=== PATIENT | male | born 1985 | race Caucasian/White ===

== ENCOUNTER 2020-07-24 09:26 | Outpatient (REF) | payer MEDICAID, SELFPAY | END 2020-07-24 09:27 | disposition home or self-care (01) | LOC: HO.LAB 09:26 | PROVIDERS: Visit Provider Internal Medicine | DX: Z20.828 Contact with and (suspected) exposure to other viral communicable diseases (principal) | CPT/HCPCS: C9803; U0003 ==

== ENCOUNTER 2020-08-12 08:06 | Outpatient (REF) | payer MEDICAID, SELFPAY | END 2020-08-12 08:07 | disposition home or self-care (01) | LOC: HO.LAB 08:06 | PROVIDERS: PCP Internal Medicine; Visit Provider Internal Medicine | DX: Z20.828 Contact with and (suspected) exposure to other viral communicable diseases (principal) | CPT/HCPCS: C9803; U0003 ==

== ENCOUNTER 2020-11-20 09:53 | Outpatient (REF) | payer MEDICAID, SELFPAY ==
[2020-11-20 12:13] LABS: SARS COV2 PCR INHOUSE NEGATIVE (Negative)
== END 2020-11-20 09:54 | disposition home or self-care (01) ==
LOC: HO.LAB 09:53
PROVIDERS: Visit Provider Internal Medicine
DX: Z20.822 Contact with and (suspected) exposure to COVID-19 (principal)
CPT/HCPCS: C9803; U0003

== ENCOUNTER 2021-07-29 11:34 | Outpatient (REF) | payer MEDICAID, SELFPAY | END 2021-07-29 11:35 | disposition home or self-care (01) | LOC: HO.LAB 11:34 | PROVIDERS: Visit Provider Internal Medicine | DX: Z20.822 Contact with and (suspected) exposure to COVID-19 (principal) | CPT/HCPCS: C9803; U0003; U0005 ==

== ENCOUNTER 2023-12-22 09:03 | Outpatient (REF) | payer MEDICAID, SELFPAY ==
[2023-12-22 14:47] LABS: Alanine Aminotransferase 42 U/L (0-40); Albumin Level 4.2 g/dL (3.5-5.0); Alkaline Phosphatase 93 U/L (39-117); Anion Gap 14 (12-20); Aspartate Amino Transferase 27 U/L (5-37); Bilirubin Direct 0.2 mg/dL (0.0-0.5); Bilirubin Total 0.5 mg/dL (0.0-1.0); Blood Urea Nitrogen 12 mg/dL (9-16); Calcium 9.2 mg/dL (8.4-10.2); Carbon Dioxide 23 mmol/L (22-29); Chloride 103 mmol/L (96-108); Cholesterol 148 mg/dL (<200); Estimated Glomerular Filt Rate > 60; Glucose Random 223 mg/dL (60-115); HDL Cholesterol 35 mg/dL (>40); LDL Cholesterol Calculated 70 mg/dL (<100); Potassium 3.7 mmol/L (3.3-5.1); Sodium 136 mmol/L (135-145); Total Protein 7.4 g/dL (6.5-8.0); Triglycerides 218 mg/dL (<150)
== END 2023-12-22 09:04 | disposition home or self-care (01) ==
LOC: HO.CHCLDS 09:03
PROVIDERS: Visit Provider Student in an Organized Health Care Education/Training Program
DX: I10 Essential (primary) hypertension (principal)
CPT/HCPCS: 36415; 80048; 80061; 80076

== ENCOUNTER 2024-07-17 12:18 | Outpatient (REF) | payer MEDICAID, SELFPAY ==
[2024-07-17 12:39] LABS: MANUAL DIFF FLAG NO
[2024-07-17 12:44] LABS: Basophils Absolute Auto 0.1 X10*3/uL (0.0-0.2); Basophils Percent Auto 1.1 % (0-2); Eosinophils Absolute Auto 0.5 X10*3/uL (0.0-0.4); Eosinophils Percent Auto 6.6 % (0-4); Hematocrit 45.2 % (42.0-52.0); Hemoglobin 16.1 g/dl (14.0-18.0); Imm Gran Abs Auto 0.03 X10*3/uL (0.00-0.03); Imm Gran Pct Auto 0.4 % (0.0-0.4); Lymphocytes Absolute Auto 2.3 X10*3/uL (1.2-4.9); Mean Corpuscular HGB Conc 35.6 g/dl (31.0-36.0); Mean Corpuscular Hemoglobin 29.7 pg (27.0-33.0); Mean Corpuscular Volume 83.2 fL (80.0-98.0); Mean Platelet Volume 10.8 fL (9.4-12.4); Monocytes Absolute Auto 0.4 X10*3/uL (0.1-1.2); Monocytes Percent Auto 5.8 % (2-11); Neutrophils Absolute Auto 3.8 x10*3/uL (2.0-8.3); Neutrophils Percent Auto 53.1 % (45-73); Platelet Count 237 X10*3/uL (160-400); Red Blood Count 5.43 X10*6/uL (4.60-5.80); Red Cell Distribution Width 12.3 % (11.0-16.0); White Blood Count 7.1 X10*3/uL (4.8-10.8)
[2024-07-17 13:55] LABS: Carbamazepine Tegretol < 2.0 mcg/mL (5.0-12.0)
[2024-07-17 13:56] LABS: Alanine Aminotransferase 59 U/L (0-40); Albumin Level 4.3 g/dL (3.5-5.0); Alkaline Phosphatase 127 U/L (39-117); Anion Gap 14 (12-20); Aspartate Amino Transferase 35 U/L (5-37); Bilirubin Total 0.4 mg/dL (0.0-1.0); Blood Urea Nitrogen 7 mg/dL (9-16); Carbon Dioxide 26 mmol/L (22-29); Chloride 100 mmol/L (96-108); Estimated Glomerular Filt Rate > 60; Glucose Random 377 mg/dL (60-115); Potassium 3.5 mmol/L (3.3-5.1); Sodium 136 mmol/L (135-145); Total Protein 7.3 g/dL (6.5-8.0)
== END 2024-07-17 12:19 | disposition home or self-care (01) ==
LOC: HO.LAB 12:18
PROVIDERS: Visit Provider Psychiatry & Neurology Neurology
DX: G40.909 Epilepsy, unspecified, not intractable, without status epilepticus (principal); G93.40 Encephalopathy, unspecified
CPT/HCPCS: 36415; 80053; 80156; 85025

== ENCOUNTER 2024-10-02 11:31 | Outpatient (REF) | payer MEDICAID, SELFPAY ==
--- OUTSIDE RECORDS SUMMARY | 2024-10-02 13:11 | XMS_ITS | Clinical Summary ---
Author Organization [email or web address] Address [address] [facility] [address] [place] [address] Care Team Providers Care Conduit Cleaner Name Role Phone Aleisha Crouch MD Primary Care Provider [phone] Allergies No known active allergies Medications Diclofenac Sodium (Voltaren) 1 % gel Apply 2 g topically in the morning and 2 g at noon and 2 g in the evening. 03/19/20 21 Active diphenhydrAMINE (Benadryl Allergy) 25 MG tablet Take 1 tablet by mouth. 06/17/20 21 Active LORazepam (Ativan) 0.5 MG tablet Take 1 tablet (0.5 mg) by mouth if needed at bedtime for anxiety. 30 tablet 03/20/20 24 Active ibuprofen 800 MG tabletIndicatio ns:Acute left-sided low back pain without sciatica Take 1 tablet (800 mg) by mouth every 8 (eight) hours if needed for mild pain or moderate pain. Take medicine with food. 60 tablet 1 05/07/20 24 Active Blood Glucose Monitoring Suppl (PaywardStyle Bryan Lite) w/Device kitIndications: New onset type 2 diabetes mellitus (CMS/HCC) Use to test blood sugar 1 times daily 1 kit 07/23/20 24 Active carBAMazepine (TEGretol) 200 MG tablet Take 1 tablet by mouth 2 times daily. 08/14/20 24 Active Blood Pressure kit Check blood pressure daily as directedd 1 kit 09/28/19 25 Active metFORMIN XR (Glucophage-XR) 500 MG 24 hr tabletIndicatio ns:New onset type 2 diabetes mellitus (CMS/HCC) Take 1 tablet (500 mg) by mouth 2 times daily. In the morning and at bedtime 180 tablet 3 10/02/19 25 Active rosuvastatin (Crestor) 10 MG tabletIndicatio ns:New onset type 2 diabetes mellitus (CMS/HCC) Take 1 tablet (10 mg) by mouth at bedtime. 90 tablet 10/02/19 25 Active lisinopril 5 MG tabletIndicatio ns:Primary hypertension Take 1 tablet (5 mg) by mouth in the morning. 90 tablet 10/02/19 25 Active Alcohol Swabs 70 % padsIndications :New onset type 2 diabetes mellitus (CMS/HCC) Use once daily 100 each 10/02/19 25 Active glucose blood (FREESTYLE LITE) test stripIndication s:New onset type 2 diabetes mellitus (CMS/HCC) Test blood sugar once daily 100 each 10/02/19 25 026 Active Lancets miscIndications :New onset type 2 diabetes mellitus (CMS/HCC) Test blood sugar once daily 100 each 10/02/19 25 Active carBAMazepine ER (Carbatrol) 200 MG 12 hr capsule Take 1 capsule by mouth every 12 (twelve) hours. 025 Discontinued(Me d list cleanup (will not trigger notification to Pharmacy)) hydrOXYzine HCl (Atarax) 10 MG tablet 1 tablet in the morning. 02/12/20 22 025 Discontinued(Me d list cleanup (will not trigger notification to Pharmacy)) ibuprofen 800 MG tablet Take 1 tablet by mouth every 8 (eight) hours. 09/05/19 025 Discontinued(Du plicate order (will not trigger notification to Pharmacy)) hydroCHLOROthia zide (HYDRODiuril) 25 MG tablet Take 1 tablet (25 mg) by mouth in the morning. 90 tablet 3 02/26/20 025 Discontinued(Me d list cleanup (will not trigger notification to Pharmacy)) gemfibrozil (Lopid) 600 MG tablet Take 1 tablet (600 mg) by mouth every 12 (twelve) hours. 180 tablet 3 02/26/20 025 Discontinued(Me d list cleanup (will not trigger notification to Pharmacy)) simvastatin (Zocor) 40 MG tabletIndicatio ns:Hypercholest eremia Take 1 tablet (40 mg) by mouth at bedtime. 90 tablet 3 12/22/19 24 025 Discontinued(Al ternate therapy) FREESTYLE LITE test stripIndication s:New onset type 2 diabetes mellitus (CMS/HCC) Use to test blood sugar 1 times daily 100 each 12 07/23/20 24 025 Discontinued(Re order (will not trigger notification to Pharmacy)) Lancets miscIndications :New onset type 2 diabetes mellitus (CMS/HCC) Use to test blood sugar 1 times daily 100 each 07/23/20 24 025 Discontinued(Re order (will not trigger notification to Pharmacy)) Alcohol Swabs 70 % padsIndications :New onset type 2 diabetes mellitus (CMS/HCC) Use to test blood sugar 1 times daily 100 each 07/23/20 24 025 Discontinued(Re order (will not trigger notification to Pharmacy)) lisinopril 5 MG tabletIndicatio ns:Primary hypertension Take 1 tablet (5 mg) by mouth Once per day. 30 tablet 11 07/23/20 24 025 Discontinued(Re order (will not trigger notification to Pharmacy)) Continuous Glucose Refinery Operator (FreeStyle Jocelin 2 Yolyn) device Scan sensor every 8 hours 1 each 07/30/20 24 025 Discontinued(Co st of medication) Continuous Glucose Sensor (FreeStyle Jocelin 2 Sensor) [facility] Apply 1 sensor every 14 days 2 each 3 07/30/20 24 025 Discontinued(Co st of medication) metFORMIN (Glucophage) 500 MG tabletIndicatio ns:New onset type 2 diabetes mellitus (CMS/HCC) Take 1 tablet (500 mg) by mouth with breakfast and with evening meal. 09/28/19 25 025 Discontinued(Al ternate therapy) Active Problems Problem Noted Date Diagnosed Date Primary hypertension 02/25/2023 Developmental delay 11/28/2013 Psychosexual dysfunction 01/13/2012 Encounters Date Type Department Care Team Description 10/02/2024 Travel 10/02/2024 Telephone [facility] [address] [place] [address] Aleisha Crouch MD Appointment Request 09/28/2024 9:30 AM EST Telemedicine [facility] [address] [place] [address] Shi Little, PharmD New onset type 2 diabetes mellitus (CMS/HCC) (Primary Dx) 09/20/2024 Orders Only [facility] [address] [facility] [place] [address] Aleisha Crouch MD Primary hypertension (Primary Dx) 09/18/2024 Telephone [facility] [address] [place] [address] Shi Little PharmD 09/06/2024 9:30 AM EST Nutrition [facility] [address] [place] [address] New onset type 2 diabetes mellitus (CMS/HCC) 09/06/2024 Travel 08/29/2024 Telephone [facility] [address] [place] [address] Cady Sanford RN 08/27/2024 Telephone [facility] [address] [place] [address] Aleisha Crouch MD No Show 08/06/2024 Telephone [facility] [address] [place] [address] Lynn Vogel, packing and final assembly supervisor 07/30/2024 10:00 AM EST Office Visit [facility] [address] [place] [address] Aleisha Crouch MD New onset type 2 diabetes mellitus (CMS/HCC) (Primary Dx); Primary hypertension 07/30/2024 Telephone [facility] [address] [place] [address] Aleisha Crouch MD CGM PA 07/30/2024 Travel 07/23/2024 1:00 PM EST Office Visit [facility] [address] [place] [address] Claudia Carson MD New onset type 2 diabetes mellitus (CMS/HCC) (Primary Dx); Primary hypertension 07/23/2024 Travel 07/18/2024 Telephone [facility] [address] [place] [address] Aleisha Crouch MD Walk-In 07/16/2024 Patient Outreach [facility] [address] [place] [address] Aleisha Crouch MD 07/16/2024 Patient Outreach [facility] [address] [place] [address] Aleisha Crouch MD Pre-visit Planning (SDOH negative, Tobacco screening negative.) from Last 3 Months Immunizations Name Administration Dates Next Due Influenza Injectable Quadriv alant Preservative Free IIV4 MDCK 05/24/2023,06/07/2022 Influenza injectable quadriv alent IIV4 with preservative 05/19/2018,05/27/2015 Influenza injectable quadriv alent preservative free 06/07/2021,06/07/2019,05/30/2016 Influenza, High Dose Seasona l, Preservative Free 05/30/2017 Influenza, IIV3, injectable 06/01/2013 Influenza, Injectable, MDCK, preservative free 06/05/2024 Influenza, seasonal, injecta ble, preservative free 05/30/2017,05/30/2016 Moderna Covid-19 Vaccine 12+ 08/24/2021,01/13/20 21,12/15/2020 TD (adult), 2 Lf tetanus tox oid, preservative free, adsorbed 04/04/2017 Td (adult), 5 Lf tetanus tox oid, preservative free, adsorbed 04/04/2017 Tdap 12/21/2023 Family History Medical History Relation Name Comments Diabetes type II Maternal Grandmother Diabetes type II Mother's Sister Relation Name Status Comments Maternal Grandmother Mother's Sister Social History Tobacco Use Types Packs/Day Years Used Date Smoking Tobacco: Never Smokeless Tobacco: Never Tobacco Cessation:Counseling Given: Not Answered Alcohol Use Standard Drinks/Week Comments Never 0 (1 standard drink = 0.6 oz pur e alcohol) Depression Answer Date Recorded Patient Health Questionnaire-9 Score 2 12/21/2023 Patient Health Questionnaire-9 Score 2 12/21/2023 Last PHQ-9: Questionnaire Data Not on file 0 12/21/2023 Housing Stability Answer Date Recorded What is your housing situation today? I have melissa mendoza 07/16/[address] you li ve. Do you have problems with any of the following? None of the above 07/16/2024 Food Insecurity Answer Date Recorded Within the past 12 months, y ou worried that your food would run out before you got money to buy more: Never True 07/16/2024 Within the past 12 months,th e food you bought just didn't last and you didn't have enough money to get more: Never True Transportation Answer Date Recorded In the past 12 months, has l ack of transportation kept you from medical appts, meetings, work or from getting things needed for daily living? No 07/16/2024 Utilities Answer Date Recorded In the past 12 months, has t he electric, gas, oil or water company threatened to shut off services in your home? No 07/16/2024 Depression Answer Date Recorded Patient Health Questionnaire-2 Score 2 12/21/2023 Internet Access Answer Date Recorded Internet Access Q1 Yes 07/16/2024 Internet Access Q2 Not on file 07/16/2024 Sex and Gender Information Value Date Recorded Sex Assigned at Male 06/21/2022 10:18 AM EDT Legal Sex Male 10:18 AM EDT Gender Identity Male 06/21/2022 10:18 AM EDT Sexual Orientation Straight 06/21/2022 10 :18 AM EDT Last Filed Vital Signs Vital Sign Reading Time Taken Comments Blood Pressure 124/76 10/02/2024 11:24 AM EST Pulse 99 10/02/2024 11:24 AM EST Temperature 36.7 ??C (98 ??F) 07/30/2024 10:01 AM EST Respiratory Rate 18 07/30/2024 10:01 AM EST Oxygen Saturation 99% 07/30/2024 10:01 AM EST Inhaled Oxygen Concentration - - Weight 64.9 kg (143 lb) 09/06/2024 2:34 PM EST Height 147.3 cm (4' 10 ) 09/06/2024 2:34 PM EST Body Mass Index 29.89 09/06/2024 2:34 PM EST Plan of Treatment Upcoming Encounters Date Type Department Care Team (Late st Contact Info) Description 10/31/2024 10:00 AM EDT Medication Management [facility] [address] [place] [address] Shi Little, PharmD [address] [place] [address] Health Maintenance Due Date Last Done Comments HIV Screening 1983 Diabetes: Foot Exam 1993 Eye Exam 1993 Alcohol/Substance Use Screening 1995 Family Planning (PISQ) 1998 Hepatitis C Screening 2001 Diabetes: Urine Protein Screening 2002 Hepatitis B Vaccines (1 of 3 - 19+ 3-dose series) 2002 Pneumococcal Vaccine: Pediatrics (0 to 5 Years) and At-Risk Patients (6 to 49) Years) (1 of 2 - PCV) 2002 Dental Prophylaxis 11/11/2015 05/12/2015, 0 10/10/2014, 01/17/2014 Dental Oral Exam 12/27/2015 06/27/2015, 02/2015, 01/11/2014 Dental X-Ray: Full Mouth 06/07/2016 06/06/2013 Dental X-Ray: Bitewings 06/28/2016 06/27/2015, 01/11 COVID-19 Vaccine ( season) 2024 08/24/2021, 01/12/2021, 12/15/2020 Diabetes: Hemoglobin A1C 10/21/2024 07/23/2024, 03/22 Depression Screening 12/20/2024 12/21/2023, 12/21/19 Lipid Panel 12/21/2024 12/22/2023, 03/22, 09/23/2021 SDOH Screening 07/16/2025 07/16/2024 Tobacco Screening 07/30/2025 07/30/2024 Zoster Vaccines (1 of 2) 2033 DTaP/Tdap/Td Vaccines (2 - Td or Tdap) 12/20/2033 12/21/2023, 04/04/2017, 04/04/2017 RSV Patients and Patients Aged 60 years or older (1 - 1-dose 75+ series) 2058 Influenza Vaccine Completed 06/05/2024, , 06/07/2022, Additional history exists HIB Vaccines Aged Out No longer eligi ble based on patient's age to complete this topic HPV Vaccines Aged Out No longer eligi ble based on patient's age to complete this topic Hepatitis A Vaccines Aged Out No long er eligible based on patient's age to complete this topic IPV Vaccines Aged Out No longer eligi ble based on patient's age to complete this topic Meningococcal Vaccine Aged Out No nerissa sherrie eligible based on patient's age to complete this topic RSV under 20 months Aged Out No longe r eligible based on patient's age to complete this topic Rotavirus Vaccines Aged Out No longer eligible based on patient's age to complete this topic Procedures Procedure Name Priority Date/Time Associated Diagnosis Comments POCT GLUCOSE Routine 07/30/2024 10:04 AM EST New onset type 2 diabetes mellitus (CMS/HCC) POCT GLYCATED HEMOGLOBIN, TOTAL Routine 07/23/2024 1:40 PM EST New onset type 2 diabetes mellitus (CMS/HCC) POCT GLUCOSE Routine 07/23/2024 1:40 PM EST New onset type 2 diabetes mellitus (CMS/HCC) LIPID PANEL, STANDARD Routine 12/22/2023 9:05 AM EDT Primary hypertension BITEWINGS - 4 RADIOGRAPHIC IMAGES Routine 06/27/2015 12:00 AM EST PERIODIC ORAL EVALUATION - ESTABLISHED PATIENT Routine 06/27/2015 12:00 AM EST PROPHYLAXIS - ADULT Routine 05/12/2015 1 2:00 AM EDT PANORAMIC RADIOGRAPHIC IMAGE Routine 06/06/2013 12:00 AM EDT from Last 3 Months or Most Recently Relevant to Health Maintenance Results * (ABNORMAL) POCT Glucose (07/30/2024 10:04 AM EST) Only the most recent of2 resultswithin the time period is included. Glucose Blood, POC 335(A) 60 - 200 mg/dL QC Media Lot # [id number] Lot# Expiration Date Blood Capillary blood specimen / Unknown 07/30/2024 10:04 AM EST Aleisha Crouch MD POINT OF CARE TEST ENTER/EDIT OR DERABLES Final Result * (ABNORMAL) POCT A1C (07/23/2024 1:40 PM EST) Hemoglobin A1C 11.2(A) 4.0 - 6.0 % QC Media Lot # Comment:[id number] Lot# Expiration Date Comment:03/22/2026 Blood 07/23/2024 1:40 PM EST Claudia Carson MD POINT OF CARE TEST ENTER/ED IT ORDERABLES Final Result * (ABNORMAL) Lipid Panel, Standard (12/22/2023 9:05 AM EDT) Triglycerides 218(H) <150 mg/dL [facility] Comment:Desirable Triglyceri de: less than 150 mg/dLBorderline High Triglyceride 150-199 mg/dLHigh Triglyceride: 200-499 mg/dLVery High Triglyceride: greater than or equal to 5OO mg/dL Cholesterol 148 <200 mg/dL [facility] Comment:Desirable Cholestero l: less than 200 mg/dLBorderline High Cholesterol: 200-239 mg/dLHigh Cholesterol: greater than 239 mg/dL LDL Cholesterol Calculated 70 <100 mg/dL [facility] Comment:Desirable LDL: less than 100 mg/dLNear Optimal/Above Optimal LDL: 110- 129 mg/dLBorderline High LDL: 130-159 mg/dLHigh LDL: 160-189 mg/dLVery High LDL: greater than or equal to 190 mg/dL HDL Cholesterol 35(L) >40 mg/dL [facility] Comment:Desirable HDL: great er than 40 mg/dL Note: This HDL assay may give artificially low results in patients with liver disease. Blood Venous blood specimen / Unknown 12/22/2023 9:05 AM EDT 12/22/2023 2:02 PM EDT Aleisha Crouch MD LAB BLOOD ORDERABLES Final Resul t [facility] [address] [place] [phone] from Last 3 Months or Most Recently Relevant to Health Maintenance Insurance [place] [facility] MEDICAID STAND ADULT Care Teams Conduit Cleaner Relationship Specialty Start Date End Date Aleisha Crouch MD [address] [place] [address] [place] [address] PCP - General Family Medicine 09/21/13
--- OUTSIDE RECORDS SUMMARY | 2024-10-02 13:11 | XMS_ITS | Encounter Summary ---
Author Organization [employer] Address [address] [place] [address] Care Team Providers Care Feather Separator Name Role Phone Aleisha Crouch MD Primary Care Provider [phone] Reason for Visit * Reason Onset Date Comments Appointment Request 10/02/2024 Encounter Details Date Type Department Care Team ([facility] Contact Info) Description 10/02/2024 Telephone [facility] [address] [place] [address] Aleisha Crouch MD [address] [place], [place] [id number] Appointment Request Social History Tobacco Use Types Packs/Day Years Used Date Smoking Tobacco: Never Smokeless Tobacco: Never Alcohol Use Standard Drinks/Week Comments Never 0 [...] Orientation Straight 06/21/2022 10 :18 AM EDT documented as of this encounter Miscellaneous Notes * Telephone Encounter - Nelson Lawrence - 10/02/2024 10:41 AM EST Tc from pt stating that they could not make it to their appt (10/02/2024 at 10am) due to vehicle broken down. Pt requested for a call back to r/s today appt at [phone]. documented in this encounter Plan of Treatment Upcoming Encounters Date Type Department Care Team (Late st Contact Info) Description 10/31/2024 10:00 AM EDT Medication Management [facility] [address] [place] [address] Shi Little PharmD [address] [place] [address] documented as of this encounter Visit Diagnoses Not on filedocumented in this encounter Additional Health Concerns Assessment Noted Time PHQ-9 Depression Total Score: 2 12/21/19 24 9:40 AM EDT documented as of this encounter Care Teams Feather Separator Relationship Specialty Start Date End Date Aleisha Crouch MD [address] [place] [address] PCP - General Family Medicine 09/21/13 documented as of this encounter
--- OUTSIDE RECORDS SUMMARY | 2024-10-02 13:11 | XMS_ITS | Encounter Summary ---
Author Organization [employer] Address [address] [facility] [address] [facility] [place] [address] Care Team Providers Care Intern Retail Name Role Phone Aleisha Crouch MD Primary Care Provider [phone] Encounter Details Date Type Department Care Team (Latest Contact Info) Description 10/02/2024 Travel Social History Tobacco Use Types Packs/Day Years [...] AM EDT documented as of this encounter Plan of Treatment Upcoming Encounters Date Type Department Care Team (Late st Contact Info) Description 10/31/2024 10:00 AM EDT Medication Management [facility] [address] [place] [address] Shi Little, PharmD [address] [place] [address] documented as of this encounter Visit Diagnoses Not on filedocumented in this encounter Additional Health Concerns Assessment Noted Time PHQ-9 Depression Total Score: 2 12/21/19 24 9:40 AM EDT documented as of this encounter Care Teams Intern Retail Relationship Specialty Start Date End Date Aleisha Crouch MD [address] [place] [address] PCP - General Family Medicine 09/21/13 documented as of this encounter
--- OUTSIDE RECORDS SUMMARY | 2024-10-02 13:11 | XMS_ITS | Encounter Summary ---
Author Organization [employer] Address [address] [place] [address] Care Team Providers Care Director Educational Radio Name Role Phone Aleisha Crouch MD Primary Care Provider [phone] Reason for Visit * Reason Onset Date Comments Walk-In 07/18/2024 Encounter Details Date Type Department Care Team ([facility] Contact Info) Description 07/18/2024 Telephone [facility] [address] [place], [place] [phone] Aleisha Crouch MD [address] [place] [address] Walk-In Social History Tobacco Use Types Packs/Day Years [...] encounter Miscellaneous Notes * Telephone Encounter - Cady Sanford RN - 07/24/2024 4:17 PM EST Pt NCNS to WARRANTY COORDINATOR [place] today. TC to pt, pt stated he did not realize today was his appt. Appt r/s to 08/29/24 @ 9:30am. * Telephone Encounter - Berenice Joshi - 07/18/2024 10:40 AM EST Pt just came from the neurologist appt and they stated for pt to come see pcp as sugar level is 377blood work drawn at [facility] 07/17/24, pt states only symptom is more thirstier than usually documented in this encounter Plan of Treatment Upcoming Encounters Date Type Department Care Team (Late st Contact Info) Description 10/31/2024 10:00 AM EDT Medication Management [facility] & PEDS [address] [place], [place] [phone] Shi Little, PharmD [address] [place] [address] documented as of this encounter Visit Diagnoses Not on filedocumented in this encounter Additional Health Concerns Assessment Noted Time PHQ-9 Depression Total Score: 2 12/21/19 24 9:40 AM EDT documented as of this encounter Care Teams Director Educational Radio Relationship Specialty Start Date End Date Aleisha Crouch MD [address] [place] [address] PCP - General Family Medicine 09/21/13 documented as of this encounter
--- OUTSIDE RECORDS SUMMARY | 2024-10-02 13:11 | XMS_ITS | Encounter Summary ---
Author Organization [employer] Address [address] [facility] [address]t [place] [address] Care Team Providers Care Spar Finisher Name Role Phone Aleisha Crouch MD Primary Care Provider Reason for Visit * Consultation (STAT) - Authorized Specialty Diagnoses / Procedures Referred By Contluis m t Referred To Contact Pharmacy Diagnoses Primary hypertension Aleisha Crouch MD [address] [place] [address] Phone: tel: fax: Referral ID Status Reason Start Date Expiration Date Visits Requested Visits Authorized [id number] Authorized Consult and Treat 09/20/2024 09/20/2025 6 6 Encounter Details Date Type Department Care Team ([facility] Contact Info) Description 09/28/2024 9:30 AM EST Telemedicine [facility] CHC MED & PEDS [address] [place] [address] Shi Little, PharmD [address] [place] [address] New onset type 2 diabetes mellitus (CMS/HCC) (Primary Dx) Social History Tobacco Use Types Packs/Day Years [...] AM EDT documented as of this encounter Progress Notes * Shi Little PharmD - 09/28/2024 9:30 AM EST Pharmacy Consult Visit Type: CDTM Pharmacist: Shi Little PharmD Umang Ferris is a 39 y.o. year old patient here for new patient visit completed over the phone. Subjective History: General / Intake (updated 09/28/24) Allergies: has No Known Allergies. Read/Write: can't read well, Korean Recent Hospitalizations: No Social History as reported by patient: Tobacco: Denies Alcohol: Denies Caffeine: Current, soda sometimes Illicit drugs: Denies Diet: Eats all types of food [employer]; sometimes skips breakfast Only eats lunch if skipped breakfast Rice, beans, corn, mashed potatoes, chicken wings for dinner Sometimes popcorn for snack Exercise: denies regular exercise, reports sometimes jumping jacks, push-ups, etc. Adherence / patient self-management Has assistance from DAIRY FEED MIXING OPERATOR with managing medications, uses pill box Admits to often missing doses or forgets if they were taken or not Refill history demonstrates non-adherence to carbamazepine (last refilled 08/14/24 x 30 days) OTC medication, vitamin, supplement use: denies For [facility] pharmacist: Ibuprofen prn Lorazepam prn Carbamazepine AM-HS Metformin AM-HS Simvastatin HS Lisinopril AM Type 2 Diabetes New onset, PCP visit 07/30/24 Continue metformin -- fell off med list; dose was going to be increased by covering provider but then new rx never sent 500mg vs 1000mg? -- patient reports taking (2) 500mg tabs together Complains of significant diarrhea Would benefit from CGM -- however pt has [facility], denied Pertinent negatives include polyuria, polydipsia, blurred vision SMBG: Freestyle Lite. Patient reports the following: denies experiencing hypoglycemia (<70mg/dL) This morninmg/dl, yesterday morninmg/dl Highest 223mg/dl, lowest 105mg/dl Hypertension No recent changes to medications Patient requests new BP monitor Pertinent negatives include chest pain, headache, blurry vision, dizziness ASCVD risk The 10-year ASCVD risk score (Brett DIAZ, et al., 2019) is: 3% Values used to calculate the score: Age: 39 years Sex: Male Is Non- : No Diabetic: Yes Tobacco smoker: No Systolic Blood Pressure: 138 mmHg Is BP treated: Yes HDL Cholesterol: 35 mg/dL Total Cholesterol: 148 mg/dL Objective History: Treatment history/considerations: PMH: HTN, developmental delay Medication: n/a Recent labs: A1c: due soon CMP: need updated - ordered 09/28/24 Albumin/creatinine ratio: due - ordered 09/28/24 Fasting lipid panel: need updated - ordered 09/28/24 Vit B12 (if on metformin): indicated, however patient just recently started taking metformin - holdoff for now Lab Results Component Value Date ALT 42 (H) 12/22/2023 AST 27 12/22/2023 LDLCHOLCAL 70 12/22/2023 TRIG 218 (H) 12/22/2023 K 3.7 12/22/2023 NA 136 12/22/2023 CREATININE 0.77 12/22/2023 EGFR >60 12/22/2023 HGBA1C 11.2 (A) 07/23/2024 HGBA1C 9.2 (H) 04/09/2022 CrCl (AdjBW)= 77 mL/min Recent blood pressure readings: BP Readings from Last 4 Encounters: 07/30/24 (!) 138/92 07/23/24 (!) 150/100 05/07/24 (!) 152/95 12/21/23 131/90 Pulse Readings from Last 4 Encounters: 07/30/24 108 07/23/24 106 05/07/24 107 12/21/23 98 Immunizations Due: COVID-19, HepB , and PCV20 Discuss next visit Preferred Pharmacy: [facility] - [place] - [address] [facility] [id number] [facility]/pharmacy #[id number] - [place] [address] [facility] [address] [id number] - [place] [address] [facility] [address] [facility] [id number] Assessment/Plan: Type 2 Diabetes Pharmacologic Therapy: Metformin 500mg twice daily Additional recommendations per ADA: On aspirin: No, not indicated for primary prevention due to age and lack of additional, major risk factors On statin: Yes, moderate intensity and taking a CY inducer (minor interaction per Clin Pharm) On ACEI/ARB: Yes Dental Exam in the past 6 mo: Unknown Eye Exam in the past 12 mo: Unknown Goals of Therapy per the ADA Standards of Medical Care in Diabetes Achieve A1c of < 7.0% while also minimizing episodes of hypoglycemia Plan: Patient to start medboxes to increase adherence. In-person appt made for next week 10/02, patient will bring all meds. Patient is taking both tablets of metformin together and complaining of diarrhea. Plan to change metformin to ER 500mg and for patient to take 1 in the morning and 1 at night as prescribed. To avoid any confusion, will hold off on this until medbox start. Patient agrees with this plan. Plan to change simvastatin to rosuvastatin to avoid interaction with carbamazepine, a CY inducer which can decrease simvastatin (and atorvastatin) levels. To avoid any confusion, will hold off onthis until medbox start. Will start rosuvastatin 10mg daily and check lipids/LFTs next visit, and 4-12 weeks after change. Education: Healthy diet and lifestyle. Discussed role of A1c monitoring, A1c and SMBG goals Reviewed risks of macro- and microvascular complications of uncontrolled DM. Reviewed signs, symptoms and treatments of hypoglycemia to which patient confirmed understanding. Hypertension Pharmacotherapy: Lisinopril 5mg daily Goals of Therapy per JNC 8: Achieve BP <140/90mmHg Plan: [facility] as patient did not have one at home. BP check, CMP, and uACR next visit to determine appropriateness of current therapy. Education: Reviewed benefits of increased exercise for improved BP control. Counseling provided to SMBP daily & log results for review in follow up. Reviewed BP goals, patient instructed to call if extremes of BP are noted prior to next scheduled visit. documented in this encounter Plan of Treatment Upcoming Encounters Date Type Department Care Team (Late st Contact Info) Description 10/31/2024 10:00 AM EDT Medication Management [facility] MED & PEDS [address] [place] [address] Shi Little PharmD [address] [place] [address] Scheduled Orders Name Type Priority Associated Diagnoses Orde r Schedule Albumin, Random Urine W/Creatinine Lab Routine New onset type 2 diabetes mellitus (CMS/HCC) Expected: 09/28/2024 (Approximate), Expires: 09/28/2025 Comprehensive Metabolic Panel Lab Routine New onset type 2 diabetes mellitus (CMS/HCC) Expected: 09/28/2024 (Approximate), Expires: 09/28/2025 Lipid Panel, Standard Lab Routine New onset type 2 diabetes mellitus (CMS/HCC) Expected: 09/28/2024 (Approximate), Expires: 09/28/2025 documented as of this encounter Visit Diagnoses Diagnosis New onset type 2 diabetes mellitus (CMS/HCC)- Primary documented in this encounter Additional Health Concerns Assessment Noted Time PHQ-9 Depression Total Score: 2 12/21/19 24 9:40 AM EDT documented as of this encounter Care Teams Spar Finisher Relationship Specialty Start Date End Date Aleisha Crouch MD [address] [place] [address] PCP - General Family Medicine 09/21/13 documented as of this encounter
--- OUTSIDE RECORDS SUMMARY | 2024-10-02 13:11 | XMS_ITS | Encounter Summary ---
Author Organization [employer] Address [address] [facility] [place] [address] Care Team Providers Care Sheet Metal Insulator Name Role Phone Aleisha Crouch MD Primary Care Provider [phone] Encounter Details Date Type Department Care Team (Latest Contact Info) Description 09/06/2024 Travel Social History Tobacco Use Types Packs/Day [...] Description 10/31/2024 10:00 AM EDT Medication Management [facility] MED & PEDS [address] [place] [address] Shi Little, PharmD [address] [place] [address] documented as of this encounter Visit Diagnoses Not on filedocumented in this encounter Additional Health Concerns Assessment Noted Time PHQ-9 Depression Total Score: 2 12/21/19 24 9:40 AM EDT documented as of this encounter Care Teams Sheet Metal Insulator Relationship Specialty Start Date End Date Aleisha Crouch MD [address] [place] [address] PCP - General Family Medicine 09/21/13 documented as of this encounter
--- OUTSIDE RECORDS SUMMARY | 2024-10-02 13:11 | XMS_ITS | Encounter Summary ---
Author Organization [employer] Address [address] [facility] [address] 7[address] [place] [address] Care Team Providers Care Motor Lodge Clerk Name Role Phone Aleisha Crouch MD Primary Care Provider [phone] Encounter Details Date Type Department Care Team (Late st Contact Info) Description 09/18/2024 Telephone [facility] CHC MED & PEDS [address] [place], [place] [phone] Shi Litlte, PharmD [address] [place] [address] Social History Tobacco Use Types Packs/Day Years [...] encounter Miscellaneous Notes * Telephone Encounter - Shi Little PharmD - 09/18/2024 4:21 PM EST Heljose, this patient has an A1c > 10% and would benefit from the pharmacy CDTM program. Please send a referral for CDTM - Diabetes. Thank you! documented in this encounter Plan of Treatment Upcoming Encounters Date Type Department Care Team (Late st Contact Info) Description 10/31/2024 10:00 AM EDT Medication Management [facility] MED & PEDS [address] [place] [address] Shi Little PharmD [address] [place] [address] documented as of this encounter Visit Diagnoses Not on filedocumented in this encounter Additional Health Concerns Assessment Noted Time PHQ-9 Depression Total Score: 2 12/21/19 24 9:40 AM EDT documented as of this encounter Care Teams Motor Lodge Clerk Relationship Specialty Start Date End Date Aleisha Crouch MD [address] [place] [address] PCP - General Family Medicine 09/21/13 documented as of this encounter
--- OUTSIDE RECORDS SUMMARY | 2024-10-02 13:11 | XMS_ITS | Encounter Summary ---
Author Organization [employer] Address [address] [facility] 7t [place] [address] Care Team Providers Care Wash Oil Cooler Operator Name Role Phone Aleisha Crouch MD Primary Care Provider [phone] Reason for Referral * Consultation (STAT) - Authorized Specialty Diagnoses / Procedures Referred By Julio César t Referred To Contact Pharmacy Diagnoses Primary hypertension Aleisha Crouch MD [address] [place] [address] Phone: tel: fax: Referral ID Status Reason Start Date Expiration Date Visits Requested Visits Authorized [id number] Authorized Consult and Treat 09/20/2024 09/20/2025 6 6 Encounter Details Date Type Department Care Team ([facility] Contact Info) Description 09/20/2024 Orders Only [facility] CHC MED & PEDS [address] [place] [address] Aleisha Crouch MD [address] [place] [address] Primary hypertension (Primary Dx) Social History Tobacco Use Types [...] [facility] [address] [place] [address] Shi Little, PharmD [address] [place] [address] Scheduled Referrals Name Type Priority Associated Diagnoses Orde r Schedule Referral to Pharmacy CDTM Outpatient Referral STAT Primary hypertension Ordered: 09/20/2024 documented as of this encounter Visit Diagnoses Diagnosis Primary hypertension- Primary Unspecified essential hypertension documented in this encounter Additional Health Concerns Assessment Noted Time PHQ-9 Depression Total Score: 2 12/21/19 24 9:40 AM EDT documented as of this encounter Care Teams Wash Oil Cooler Operator Relationship Specialty Start Date End Date Aleisha Crouch MD [address] [place] [address] PCP - General Family Medicine 09/21/13 documented as of this encounter
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
--- OUTSIDE RECORDS SUMMARY | 2024-10-02 13:11 | XMS_ITS | Clinical Summary ---
Author Organization [facility] ity Address [address] [place] [address] Care Team Providers Care Whitewasher Name Role Phone Unavailable Primary Care Provider Unavailabl e Social History Tobacco Use Types Packs/Day Years Used Date Smoking Tobacco: Never Assessed Sex and Gender Information Value Date Recorded Sex Assigned at Not on file Legal Sex Male 3:00 AM EST Gender Identity Not on file Sexual Orientation Not on file Plan of Treatment Health Maintenance Due Date Last Done Comments DTaP,Tdap,and Td Vaccines (1 - Tdap) 1990 Hepatitis B Vaccines (1 of 3 - 19+ 3-dose series) 2002 Cholesterol Screening (Lipid Panel) 09/20/2023 Depression Screening 09/20/2023 HIV Screening 09/20/2023 Hepatitis C Screening 09/20/2023 Social Influencers of Health Screening 09/20/2023 COVID-19 Vaccine ( season) 2024 Influenza Vaccine (#1) 2024 9, 05/30/2017, 05/30/2016, Additional history exists HIB Vaccines Aged Out [...] on patient's age to complete this topic MMR Vaccines Aged Out No longer eligi ble based on patient's age to complete this topic Meningococcal ACWY Vaccine Aged Out N o longer eligible based on patient's age to complete this topic Meningococcal B Vacine Aged Out No lo nger eligible based on patient's age to complete this topic Pneumococcal Vaccine: Pediatrics (0 to 5 Years) and At-Risk Patients (6 to 64 Years) Aged Out No longer eligible based on patient's age to complete this topic RSV Immunization Patients Under 20 months Aged Out No longer eligible based on patient's age to complete this topic Varicella Vaccines Aged Out No longer eligible based on patient's age to complete this topic
--- OUTSIDE RECORDS SUMMARY | 2024-10-02 13:11 | XMS_ITS | Encounter Summary ---
Author Organization [employer] Address [address] [facility] 7t [place] [address] Care Team Providers Care Grinder Outside Diameter Name Role Phone Aleisha Crouch MD Primary Care Provider [phone] Reason for Visit * Consultation (Routine) - Authorized Specialty Diagnoses / Procedures Referred By Contluis m t Referred To Contact Nutrition Diagnoses New onset type 2 diabetes mellitus (CMS/HCC) Claudia Carson MD [address] [place] [address] Phone: tel: fax: Referral ID Status Reason Start Date Expiration Date Visits Requested Visits Authorized [id number] Authorized Consult and Treat 07/23/2024 07/23/2025 1 1 Encounter Details Date Type Department Care Team ([facility] Contact Info) Description 09/06/2024 9:30 AM EST Nutrition [facility] CHC DIABETES/NTRN [address] [place], [place] [phone] Iris Méndez RD [address] [place], [place] [phone] New onset type 2 diabetes mellitus (CMS/HCC) Social History Tobacco Use Types Packs/Day Years [...] AM EDT documented as of this encounter Last Filed Vital Signs Vital Sign Reading Time Taken Comments Blood Pressure - - Pulse - - Temperature - - Respiratory Rate - - Oxygen Saturation - - Inhaled Oxygen Concentration - - Weight 64.9 kg (143 lb) 09/06/2024 2:34 PM EST Height 147.3 cm (4' 10 ) 09/06/2024 2:34 PM EST Body Mass Index 29.89 09/06/2024 2:34 PM EST documented in this encounter Progress Notes * Iris Méndez RD - 09/06/2024 9:30 AM EST In Person Visit Medical Diagnosis: E11.9 New onset Type 2 diabetes melllitus Anthropometrics: Ht:4' 10 (1.473 m), Wt:143 lb (64.9 kg), BMI: Body mass index is 29.89 kg/m??. Assessment: Patient (Pt) and Pt's sister, Augusta, accepted nutrition education assessment appointment with RD. RD took Pt's weight. RD took 24 hour recall/ typical daily intake from Pt. Intake revealed Pt's diet is high in refine carbohydrates and low in: protein, healthy fats, fiber,whole grains, fresh and cooked vegetables, and fruit. Today, Pt only did the first half of First appointment. Once the second half of First appointment is finished, RD will fill in nutrition diagnosis, nutrition Intervention, goals, Tailored made meal plan, monitoring and evaluation will be put into Pt's chart here. Thus, all is to be followed by Pt with their agreement. The second half of First nutrition education assessment appointment is scheduled in the first week of September 2024. Before next appointment, RD suggested goals for Pt to accomplish to help him with his diet. These are easy items/ things to accomplish. Pt agreed to work on these goals/ suggestions. They are: Swap out microwave popcorn for home made or Skinny Pop or Smart Food brand popcorn Swap out sugary beverages for sugar free beverages as in sodas, Gatorades, Powerades, drink mixes, and juices Food Allergies: coconut Exercise: not at all Food Intolerance: None mentioned Food Preferences: Juices, sodas regular, [place] water, white bread, garlic bread, noodles, rice, mashed potatoes, beans, toastones, popcorn, mac n' cheese, brownies, corn, crackers, lasagna, Flaco lettuce, tomatoes, cucumbers, mix vegetables, beef, pork, eggs, ham, jensen, chicken wings, chicken, cheese, mayonnaise, butter, ranch dressing, Food Dislikes: Didn't say Frequency of Eating Out/ Restaurant: 3-4 x weekly Who Cooks?: Parent and Family Member How much caffeine?: caffeinated soft drinks 2-3 cups /day How much sugary beverages?: Soda, 3-4 cups and Juice, 1-2 cups Diet History: Breakfast: White toast: 2 Butter: 4 teaspoons Eg Jensen: 4 strips O.J.: 1 cup [place] water: 1/2 -1 cup Snack: Microwave popcorn- extra buttery: one bag O.J.: one cup Lunch: Hungry Man TV dinner Chicken: 3+ oz. Mashed potatoes: 1/2 cup [place]: 1/2 cup Brownie: 1 = 2 x 2 Soda., Pepsi: 16 oz. Snack: Microwave popcorn- extra buttery: one bag [place] water: 2 cups Dinner: Rice: 1/2 cup Beans: 1/4 cup [place]: 1/4 cup Pork: 1/3 cup Toastones: 2-4 Gatorade: 16 oz. Snack: Microwave popcorn- extra buttery: one bag [place], reg.: 16 oz. Nutrition Diagnosis: 1st half of First appointment was done today. When the 2nd half of First appointment is finished/ done, this area will be filled in. Nutrition Intervention: 1st half of First appointment was done today. When the 2nd half of First appointment is finished/ done, this area will be filled in. Monitoring and Evaluation: 1st half of First appointment was done today. When the 2nd half of First appointment is finished/ done, this area will be filled in. Provider: Iris Méndez RD, [place] documented in this encounter Plan of Treatment Upcoming Encounters Date Type Department Care Team (Late st Contact Info) Description 10/31/2024 10:00 AM EDT Medication Management [facility] MED & PEDS [address] [place] [address] Shi Little PharmD [address] [place] [address] documented as of this encounter Visit Diagnoses Diagnosis New onset type 2 diabetes mellitus (CMS/HCC) documented in this encounter Additional Health Concerns Assessment Noted Time PHQ-9 Depression Total Score: 2 12/21/19 24 9:40 AM EDT documented as of this encounter Care Teams Grinder Outside Diameter Relationship Specialty Start Date End Date Aleisha Crouch MD [address] [place] [address] PCP - General Family Medicine 09/21/13 documented as of this encounter
[2024-10-02 14:41] LABS: Alanine Aminotransferase 55 U/L (0-40); Albumin Level 4.4 g/dL (3.5-5.0); Anion Gap 13 (12-20); Aspartate Amino Transferase 71 U/L (5-37); Bilirubin Total 0.5 mg/dL (0.0-1.0); Blood Urea Nitrogen 10 mg/dL (9-16); Calcium 9.4 mg/dL (8.4-10.2); Carbon Dioxide 29 mmol/L (22-29); Chloride 103 mmol/L (96-108); Cholesterol 163 mg/dL (<200); Estimated Glomerular Filt Rate > 60; Glucose Random 226 mg/dL (60-115); HDL Cholesterol 41 mg/dL (>40); LDL Cholesterol Calculated 70 mg/dL (<100); Potassium 3.3 mmol/L (3.3-5.1); Sodium 142 mmol/L (135-145); Total Protein 7.7 g/dL (6.5-8.0); Triglycerides 261 mg/dL (<150)
[2024-10-02 14:49] LABS: Creatinine Urine 203.08 mg/dL; Microalbum/Creatinine Ratio Ur 46.7 ug/mg cr (<30)
[2024-10-02 17:12] LABS: Alkaline Phosphatase 103 U/L (39-117)
== END 2024-10-02 11:32 | disposition home or self-care (01) ==
LOC: HO.CHCLDS 11:31
PROVIDERS: Visit Provider Student in an Organized Health Care Education/Training Program
DX: E11.9 Type 2 diabetes mellitus without complications (principal)
CPT/HCPCS: 36415; 80053; 80061; 82043; 82570

== ENCOUNTER 2024-11-16 10:09 | Outpatient (REF) | payer MEDICAID, SELFPAY ==
[2024-11-16 14:51] LABS: Alanine Aminotransferase 49 U/L (0-40); Albumin Level 4.5 g/dL (3.5-5.0); Alkaline Phosphatase 96 U/L (39-117); Anion Gap 13 (12-20); Aspartate Amino Transferase 41 U/L (5-37); Bilirubin Direct 0.1 mg/dL (0.0-0.5); Bilirubin Total 0.3 mg/dL (0.0-1.0); Blood Urea Nitrogen 12 mg/dL (9-16); Calcium 9.3 mg/dL (8.4-10.2); Carbon Dioxide 24 mmol/L (22-29); Chloride 106 mmol/L (96-108); Cholesterol 141 mg/dL (<200); Estimated Glomerular Filt Rate > 60; Glucose Random 242 mg/dL (60-115); HDL Cholesterol 44 mg/dL (>40); LDL Cholesterol Calculated 32 mg/dL (<100); Potassium 3.8 mmol/L (3.3-5.1); Sodium 139 mmol/L (135-145); Total Protein 7.6 g/dL (6.5-8.0); Triglycerides 329 mg/dL (<150)
== END 2024-11-16 10:10 | disposition home or self-care (01) ==
LOC: HO.CHCLDS 10:09
PROVIDERS: Visit Provider Student in an Organized Health Care Education/Training Program
DX: I10 Essential (primary) hypertension (principal); E11.9 Type 2 diabetes mellitus without complications
CPT/HCPCS: 36415; 80048; 80061; 80076